=== PATIENT | female | born 1945 | race Two or more races ===

== ENCOUNTER 2019-08-03 07:49 | Day surgery (SDC) | payer MEDICARE, OTHER ==
[~2019-08-03] VITALS: Ht 154.9 cm; Wt 69.2 kg
[2019-08-03] VITALS (8 sets, daily range): BP systolic 116–143; BP diastolic 53–67
[2019-08-03] MEDS ORDERED: diphenhydrAMINE 25mg capsule PO PRN (08:20)
[2019-08-03] MEDS ORDERED: normal saline 1,000 ML IV SCH (08:20)
[2019-08-03] MEDS ORDERED: HYDR-4383 PO (08:34)
[2019-08-03] MEDS ORDERED: LISI-600 PO (08:34)
[2019-08-03] MEDS ORDERED: FENO48TA15 PO (08:34)
[2019-08-03] MEDS ORDERED: B12 PO (08:34)
[2019-08-03] MEDS ORDERED: midazolam 2 mg/2 ml injection ONE (08:35)
[2019-08-03] MEDS ORDERED: fentaNYL/PF 50MCG/1 ML 2ML syringe ONE (08:35)
[2019-08-03] MEDS ORDERED: iohexol 350 MG/ML 50ML vial IV ONE (08:35)
[2019-08-03] MEDS ORDERED: iohexol 350MG/ML 100ml bottle IV ONE ×2 (08:35→09:53)
[2019-08-03] MEDS ORDERED: LIDOcaine 1% (10mg/ml)w/preservative injection 20ml MDV ONE (08:35)
[2019-08-03 08:36] LABS: BASOPHILS % (AUTO) 0.8 % (0-1); EOSINOPHILS # (AUTO) 0.1 X10'3 (0-0.9); EOSINOPHILS % (AUTO) 2.5 % (0-6); HEMATOCRIT 38.2 % (35.0-45.0); HEMOGLOBIN 12.5 g/dl (12.0-16.0); LYMPHOCYTES # (AUTO) 1.2 X10'3 (1.1-4.8); LYMPHOCYTES % (AUTO) 22.7 % (21-51); MEAN CORPUSCULAR HEMOGLOBIN 29.9 PG (27.0-31.0); MEAN CORPUSCULAR HGB CONC 32.9 g/dL (33.0-36.5); MEAN PLATELET VOLUME 7.7 FL (7.4-10.4); MONOCYTES # (AUTO) 0.5 X10'3 (0-0.9); NEUTROPHILS # (AUTO) 3.4 X10'3 (1.8-7.7); PLATELET COUNT 204 X10'3 (140-440); RED BLOOD COUNT 4.19 X10'6 (4.20-5.60); RED CELL DISTRIBUTION WIDTH 13.9 % (11.5-14.5); WHITE BLOOD COUNT 5.3 X10'3 (4.5-11.0)
[2019-08-03] MEDS ORDERED: INSU100V12 SQ (08:36)
[2019-08-03] MEDS ORDERED: NPH,100V2 SQ (08:36)
[2019-08-03] MEDS ORDERED: PRAV80TA3 PO (08:36)
[2019-08-03 08:44] LABS: ALBUMIN 4.2 G/DL (3.4-5.0); ANION GAP 10 (8-16); BLOOD UREA NITROGEN 19 MG/DL (7-18); BUN/CREATININE RATIO 18.1 (6.6-38.0); CALCIUM 9.6 MG/DL (8.5-10.1); CHLORIDE 104 MMOL/L (99-107); CREATININE 1.05 MG/DL (0.40-0.90); GLUCOSE 202 MG/DL (70-104); MAGNESIUM 1.9 MG/DL (1.5-2.4); POTASSIUM 4.6 MMOL/L (3.5-5.1); SODIUM 139 MMOL/L (135-145); TOTAL CARBON DIOXIDE 25.4 MMOL/L (24-32); eGFR 51 ML/MIN
[2019-08-03] MEDS ORDERED: ADV50100 IH (08:44)
[2019-08-03] MEDS ORDERED: GABA-530 PO (08:44)
[2019-08-03] MEDS ORDERED: CLOP75TA35 PO (08:44)
[2019-08-03] MEDS ORDERED: ASPI-1265 PO (08:45)
[2019-08-03] MEDS ORDERED: PANT-47 PO (08:47)
[2019-08-03] MEDS ORDERED: OXYB5TAB16 PO (08:47)
[2019-08-03] MEDS ORDERED: HYDROcodone/acetaminophen 10/325mg tab PO PRN (10:45)
[2019-08-03] MEDS ORDERED: HYDROcodone/acetaminophen 5mg/325mg tablet PO PRN (10:45)
== END 2019-08-03 13:45 | disposition home or self-care (01) ==
LOC: SSTAY O 07:49
PROVIDERS: ATTEND Internal Medicine Cardiovascular Disease
DX: T82.868A Thrombosis due to vascular prosthetic devices, implants and grafts, initial encounter (principal); I25.118 Atherosclerotic heart disease of native coronary artery with other forms of angina pectoris; I10 Essential (primary) hypertension; E66.9 Obesity, unspecified; Z68.27 Body mass index [BMI] 27.0-27.9, adult; E78.5 Hyperlipidemia, unspecified; K21.9 Gastro-esophageal reflux disease without esophagitis; Z85.3 Personal history of malignant neoplasm of breast; Z98.49 Cataract extraction status, unspecified eye; E10.40 Type 1 diabetes mellitus with diabetic neuropathy, unspecified; Z98.890 Other specified postprocedural states; Z95.1 Presence of aortocoronary bypass graft; Z90.49 Acquired absence of other specified parts of digestive tract; Z79.899 Other long term (current) drug therapy; Z79.82 Long term (current) use of aspirin; Z79.01 Long term (current) use of anticoagulants; Z88.8 Allergy status to other drugs, medicaments and biological substances; Z95.5 Presence of coronary angioplasty implant and graft; Y83.8 Other surgical procedures as the cause of abnormal reaction of the patient, or of later complication, without mention of misadventure at the time of the procedure; Y92.89 Other specified places as the place of occurrence of the external cause
CPT/HCPCS: 36415; 80048; 82948; 83735; 85025; 85610; 93005; 93459; 99152; 99153; C1760; C1769; C1894; J1644; J2001; J2250; J3010; J7030; Q9967; A4620; A6258

== ENCOUNTER 2022-01-05 07:46 | Day surgery (SDC) | payer MEDICARE, OTHER ==
[2021-12-28 10:46] LABS: BASOPHILS % (AUTO) 0.8 % (0-1); EOSINOPHILS # (AUTO) 0.1 X10'3 (0-0.9); EOSINOPHILS % (AUTO) 2.4 % (0-6); LYMPHOCYTES # (AUTO) 1.2 X10'3 (1.1-4.8); LYMPHOCYTES % (AUTO) 29.1 % (21-51); MEAN CORPUSCULAR HEMOGLOBIN 29.7 PG (27.0-31.0); MEAN CORPUSCULAR HGB CONC 33.1 g/dL (33.0-36.5); MEAN CORPUSCULAR VOLUME 89.8 FL (78-98); MEAN PLATELET VOLUME 7.8 FL (7.4-10.4); MONOCYTES # (AUTO) 0.3 X10'3 (0-0.9); MONOCYTES % (AUTO) 8.6 % (2-12); NEUTROPHILS # (AUTO) 2.4 X10'3 (1.8-7.7); NEUTROPHILS % (AUTO) 59.1 % (42-75); PRE OP HEMATOCRIT 31.4 % (35.0-45.0); PRE OP PLATELET COUNT 243 X10'3 (140-440); RED BLOOD COUNT 3.49 X10'6 (4.20-5.60); RED CELL DISTRIBUTION WIDTH 13.7 % (11.5-14.5)
[2021-12-28 10:55] LABS: PRE OP HEMOGLOBIN 10.4 g/dL (12.0-16.0)
[2021-12-28 13:18] LABS: ALBUMIN 3.9 G/DL (3.4-5.0); ALBUMIN/GLOBULIN RATIO 1.2 (1.1-1.5); ALKALINE PHOSPHATASE 52 IU/L (46-116); BLOOD UREA NITROGEN 34 MG/DL (7-18); BUN/CREATININE RATIO 25.8 (6.6-38.0); CALCIUM 9.4 MG/DL (8.5-10.1); CHLORIDE 103 MMOL/L (99-107); CREATININE 1.32 MG/DL (0.40-0.90); PRE OP ALT 23 U/L (30-65); PRE OP ANION GAP 7 (8-16); PRE OP AST 22 U/L (10-37); PRE OP BILIRUB, TOTAL 0.3 MG/DL (0.0-1.0); PRE OP POTASSIUM 5.4 MMOL/L (3.4-5.1); PRE OP SODIUM 139 MMOL/L (135-145); TOTAL CARBON DIOXIDE 28.8 MMOL/L (24-32); TOTAL PROTEIN 7.1 G/DL (6.4-8.2); eGFR 39 ML/MIN
[2021-12-28 13:19] LABS: PRE OP GLUCOSE 251 MG/DL (70-104)
[~2022-01-05] VITALS: Ht 154.9 cm; Wt 63.5 kg
[~2022-01-05 07:46] MED LIST: ASPI-1265 PO; BUPIVAcaine 0.5% inj/PF 30 ML ONE; CLOP75TA34 PO; EVOL140P3 SUBCUT; FENO48TA15 PO; GABA-530 PO; INSU100V12 SQ; LIDOcaine 1% 30ml preserv. free vial ONE; LISI40TA13 PO; NOVLG SQ; OXYB5TAB16 PO; PANT-47 PO; cefazolin/dext.iso 2gm/50ml IV ONE; famotidine 20mg tablet PO ONE; ringers solution, lacted 1,000 ML IV SCH
[2022-01-05 09:00] VITALS: BP 130/62
[2022-01-05] MEDS ORDERED: LEVO50TA8 PO (09:51)
[2022-01-05] MEDS ORDERED: fentaNYL/PF 50MCG/1 ML 2ML syringe ONE (11:00)
[2022-01-05] MEDS ORDERED: BUPIVAcaine 0.5% inj/PF 30 ml vial IJ ONE (11:00)
[2022-01-05] MEDS ORDERED: midazolam 1 mg/ML 2ml injection ONE (11:00)
[2022-01-05 11:28] VITALS: BP 164/67
--- NOTE | 2022-01-05 11:28 | NUR ---
Received from OR via [facility], accompanied by Anesthesiologist JASPREET and report given by Anesthesiolgist. PATIENT WITH 20G PIV IN LEFT UE RUNNING LR AT 100. DENIES PAIN. RIGHT WRIST DRESSING IS CDI. FINGERS PWD, + CAP REFILL . ON ROOM AIR WITH 100% SATURATIONS. DENIES PAIN Addendum: 01/05/22 at 1138 by Kevin Armstrong RN, RN Amended: Links added.
[2022-01-05] MEDS ORDERED: morphine 2 MG/ML inj. syringe IV PRN (11:35)
[2022-01-05] MEDS ORDERED: ondansetron/PF 4mg/2ml inj IV PRN (11:35)
[2022-01-05] MEDS ORDERED: morphine 4 MG/ML inj SYRINge IV PRN (11:35)
[2022-01-05] MEDS ORDERED: proCHLORperazine 10 MG/2 ml inj IV PRN (11:35)
[2022-01-05] MEDS ORDERED: meperidine/PF 25mg/ml syringe IV PRN ×3 (11:35)
[2022-01-05] MEDS ORDERED: ringers solution, lacted 1,000 ML IV SCH (11:35)
[2022-01-05 11:38] VITALS: BP 151/59
[2022-01-05 11:48] VITALS: BP 148/62
[2022-01-05 11:58] VITALS: BP 142/61
--- NOTE | 2022-01-05 12:08 | NUR ---
ALL DISCHARGE CRITERIA HAS BEEN MET. VSS, PAIN AT A TOLERABLE LEVEL, VOIDING AND ABLE TO SAFELY AMBULATE AND TRANSFER SELF. IV TAKEN OUT WITHOUT ANY COMPLICATIONS. ALL DISCHARGE INSTRUCTIONS COVERED WITH PATIENT AND ALL QUESTIONS ANSWERED. PATIENT TAKEN OUT VIA WHEELCHAIR TO PERSONAL VEHICLE WHERE FAMILY/FRIEND DROVE PATIENT HOME. Addendum: 01/05/22 at 1214 by Kevin Armstrong RN, RN Amended: Links added.
== END 2022-01-05 12:08 | disposition home or self-care (01) ==
LOC: PRE-OP 07:46
PROVIDERS: ATTEND Orthopaedic Surgery Hand Surgery
DX: G56.01 Carpal tunnel syndrome, right upper limb (principal); M65.341 Trigger finger, right ring finger; E11.9 Type 2 diabetes mellitus without complications; I25.10 Atherosclerotic heart disease of native coronary artery without angina pectoris; Z20.822 Contact with and (suspected) exposure to COVID-19; Z79.01 Long term (current) use of anticoagulants; Z79.899 Other long term (current) drug therapy; Z79.82 Long term (current) use of aspirin; Z90.710 Acquired absence of both cervix and uterus; Z98.890 Other specified postprocedural states; Z98.41 Cataract extraction status, right eye; Z95.1 Presence of aortocoronary bypass graft; E03.9 Hypothyroidism, unspecified; M19.90 Unspecified osteoarthritis, unspecified site; Z85.3 Personal history of malignant neoplasm of breast
CPT/HCPCS: 26055; 36415; 64721; 80053; 82948; 85025; J0690; J2250; J3010; J3490; J7030; J7120; S0020; U0003; U0005; Z7506; Z7512; A4215

== ENCOUNTER 2025-03-26 08:08 | Day surgery (SDC) | payer MEDICARE, OTHER ==
[2025-03-26] VITALS (9 sets, daily range): BP systolic 139–166; BP diastolic 55–70; PULSE 53–68; RESP 12–20; TEMP 98.2; O2SAT 98–100
[~2025-03-26] VITALS: Ht 154.9 cm; Wt 65.3 kg
[~2025-03-26 08:08] MED LIST changes: -BUPIVAcaine 0.5% inj/PF 30 ML ONE; +LEVO50TA8 PO; -LIDOcaine 1% 30ml preserv. free vial ONE; -OXYB5TAB16 PO; +OXYB5TAB21 PO; -cefazolin/dext.iso 2gm/50ml IV ONE; -famotidine 20mg tablet PO ONE; -ringers solution, lacted 1,000 ML IV SCH
--- NOTE | 2025-03-26 08:42 | ELECTROCARDIOGRAPH REPORT ---
[facility] Test Date: 2025-03-26 Test Time: 08:39:41 Pat Name: CARL KHAN Department: [facility] Patient ID: [id number] Room: Gender: F Manager [employer]: VIPUL : [id number] Requested By: JOSUE STRICKLAND Order Number: [id number] Reading MD: Dr. LAKEISHA Gomes Measurements Intervals [place] Rate: 62 P: 31 MD: 168 QRS: 1 QRSD: 93 T: 34 QT: 400 QTc: 407 Interpretive Statements Sinus rhythm Borderline T abnormalities, anterior leads Electronically Signed On 03-26-2025 16:14:[address] LAKEISHA Gomes Please click the below link to view image of tracing.
[2025-03-26] MEDS ORDERED: PRED5DRO23 RIGHTEYE (09:00)
[2025-03-26] MEDS ORDERED: ATRO2DRO RIGHTEYE (09:00)
[2025-03-26] MEDS ORDERED: FERR-121 PO (09:00)
[2025-03-26] MEDS ORDERED: LANTUS SQ (09:00)
[2025-03-26 09:06] LABS: BASOPHILS % (AUTO) 0.8 % (0-1); EOSINOPHILS # (AUTO) 0.2 X10'3 (0-0.9); EOSINOPHILS % (AUTO) 4.5 % (0-6); HEMATOCRIT 37.7 % (35.0-45.0); HEMOGLOBIN 12.8 g/dl (12.0-16.0); LYMPHOCYTES # (AUTO) 1.3 X10'3 (1.1-4.8); LYMPHOCYTES % (AUTO) 25.1 % (21-51); MEAN CORPUSCULAR HEMOGLOBIN 30.8 PG (27.0-31.0); MEAN CORPUSCULAR HGB CONC 33.9 g/dL (33.0-36.5); MEAN CORPUSCULAR VOLUME 90.9 FL (78-98); MEAN PLATELET VOLUME 7.3 FL (7.4-10.4); MONOCYTES # (AUTO) 0.5 X10'3 (0-0.9); MONOCYTES % (AUTO) 9.4 % (2-12); NEUTROPHILS # (AUTO) 3.2 X10'3 (1.8-7.7); NEUTROPHILS % (AUTO) 60.2 % (42-75); PLATELET COUNT 212 X10'3 (140-440); RED BLOOD COUNT 4.14 X10'6 (4.20-5.60); RED CELL DISTRIBUTION WIDTH 13.4 % (11.5-14.5); WHITE BLOOD COUNT 5.3 X10'3 (4.5-11.0)
[2025-03-26] MEDS: sodium bicarbonate 1meq/ml syr 150 ML in dextrose 5%-water 1,000 ML IV ONE (09:20)
[2025-03-26] MEDS: diphenhydrAMINE 25mg capsule PO PRN (09:20)
[2025-03-26] MEDS: normal saline 1,000 ML IV SCH (09:20)
[2025-03-26 09:22] LABS: PROTHROMBIN TIME 10.5 SECONDS (9.0-12.0)
[2025-03-26 09:30] LABS: ANION GAP 6 (8-16); BLOOD UREA NITROGEN 34 MG/DL (7-18); CALCIUM 9.4 MG/DL (8.5-10.1); CHLORIDE 107 MMOL/L (99-107); CREATININE 1.03 MG/DL (0.40-0.90); GLUCOSE 101 MG/DL (70-104); MAGNESIUM 1.9 MG/DL (1.5-2.4); POTASSIUM 4.8 MMOL/L (3.5-5.1); SODIUM 140 MMOL/L (135-145); TOTAL CARBON DIOXIDE 27.5 MMOL/L (24-32); eCRCL 33 ML/MIN; eGFR 52 ML/MIN
[2025-03-26] MEDS ORDERED: iohexol 350 MG/ML 50ML vial IV ONE (10:30)
[2025-03-26] MEDS ORDERED: fentaNYL/PF 50MCG/1 ML 2ML syringe ONE (10:30)
[2025-03-26] MEDS ORDERED: heparin 1,000unit/ml 10ml vial 10 ML ONE (10:30)
[2025-03-26] MEDS ORDERED: midazolam 1 mg/ML 2ml injection ONE ×2 (10:30→11:20)
[2025-03-26] MEDS ORDERED: LIDOcaine 1% 30ml preserv. free vial ONE (10:30)
[2025-03-26] MEDS ORDERED: iohexol 350MG/ML 100ml bottle IV ONE ×2 (10:31→12:07)
--- NOTE | 2025-03-26 13:12 | CARDIOLOGY REPORT ---
DATE OF SERVICE: 03/26/2025 DICTATING PHYSICIAN: JOSUE STRICKLAND DO CARDIAC CATHETERIZATION REPORT REFERRING PHYSICIAN: Mara Estrella MD. CLINICAL HISTORY: This 79-year-old woman is status post 4-vessel CABG in 2010. Catheterization in 2011 demonstrated that all 3 vein grafts previously placed were occluded, but a BRAVO to the LAD was patent and functioning normally. She has had stent placement to the circumflex and right coronary arteries. She occasionally has chest discomfort, but it has no consistent pattern. PROCEDURES PERFORMED: * Left heart catheterization. * Left ventriculography. * Selective coronary arteriography. * Selective opacification of a left internal mammary graft. * A 30-minute conscious sedation supervision. DESCRIPTION OF PROCEDURE: The patient was sedated with fentanyl and Versed. She was then prepared and draped in the usual manner. The right inguinal area was infiltrated with 1% lidocaine. Using a micropuncture set and a Seldinger technique, a 7-[place] sheath was placed in the common femoral artery, 3000 units of heparin were given. Left heart catheterization and left ventriculography were performed using a 6-[place] pigtail catheter. Coronary arteriography was performed using 6-[place]ian #4 left and right Jagdeep catheters. The left internal mammary artery graft was opacified using a 6-[place] DEMETRIUS catheter. The stumps of previous vein grafts were not opacified given the fact they have been previously demonstrated to be occluded. RESULTS: HEMODYNAMIC DATA: The left ventricular and diastolic pressure was 23 mmHg. There was no gradient across the aortic valve. LEFT VENTRICULOGRAM: The left ventriculogram was technically satisfactory. The ejection fraction was about 60-65%. CORONARY ARTERIOGRAPHY: The coronary arteriograms were technically satisfactory. The patient had a right dominant system. LEFT MAIN CORONARY ARTERY: The left main was large unobstructed vessel bifurcating into the left anterior descending and circumflex coronary arteries. LEFT ANTERIOR DESCENDING CORONARY ARTERY: The LAD appeared to be a medium-sized vessel. It was occluded just after the takeoff of the first major septal oncology registrar and the takeoff of a medium-sized diagonal branch. CIRCUMFLEX CORONARY ARTERY: The circumflex was a large main stem vessel. There was a large first obtuse marginal and a very large posterolateral branch. A stent in the distal vessel was widely patent. There were no obstructive lesions otherwise within the circumflex coronary artery, although there were moderate luminal irregularities. RIGHT CORONARY ARTERY: The right coronary artery was a large main stem vessel. There was a medium-sized posterior descending branch and 2 small posterolateral branches. The mid right coronary artery was narrowed by about 50-60% just beyond the end of a stent. SELECTIVE OPACIFICATION OF LEFT INTERNAL MAMMARY GRAFT: The BRAVO to mid LAD was widely patent both in the graft and in the mcgrath vessel beyond the distal anastomosis. CONCLUSIONS: * Coronary artery disease manifested as follows: * A. 100% obstruction of the mid LAD. * B. 50-60% narrowing of the right coronary artery in its mid segment right in the region of the acute marginal band. * Three previously placed saphenous vein grafts known to be occluded; however, there is a patent and unobstructed BRAVO to the mid LAD. * Left ventricular function was normal. The ejection fraction was 60-65%. RECOMMENDATIONS: Ongoing medical therapy. JOSUE STRICKLAND DO TID: [id number] RECEIPT: [id number] MARTHA/VIVEK MACIEL
[2025-03-26] MEDS ORDERED: HYDROcodone/acetaminophen 10/325mg tab PO PRN (13:25)
[2025-03-26] MEDS ORDERED: proCHLORperazine 10 MG/2 ml inj IV PRN (13:25)
[2025-03-26] MEDS ORDERED: HYDROcodone/acetaminophen 5mg/325mg tablet PO PRN (13:25)
[2025-03-26] MEDS ORDERED: ondansetron/PF 4mg/2ml inj IV PRN (13:25)
--- NOTE | 2025-03-26 13:35 | CARDIOLOGY REPORT ---
DATE OF SERVICE: 03/26/2025 DICTATING PHYSICIAN: JOSUE STRICKLAND DO CARDIAC CATHETERIZATION REPORT REFERRING PHYSICIAN: Mara Estrella MD CLINICAL HISTORY: This 79-year-old woman has claudication in both lower extremities with the left being much more severe. The patient's notable historical point is that the patient has had previous back surgery and now has fixation hardware in the lumbosacral area. PROCEDURES PERFORMED: * Right common femoral arterial access. * Ipsilateral iliac, femoral, popliteal, and infrapopliteal arteriographic runoff. * Distal abdominal aortic angiogram with left leg runoff. * Percutaneous arteriotomy closure (perclosed). * 60 minutes conscious sedation and supervision. DESCRIPTION OF PROCEDURE: The patient was sedated with fentanyl and Versed. She was prepared and draped in the usual manner. A 7-[place] Citizen sheath was in place in the common femoral artery. Using this sheath, ipsilateral angiographic runoff of the iliacs, femoral, popliteal, and infrapopliteal vessels was accomplished. There was an effort to using a 6-[place] DEMETRIUS catheter and a Glidewire to enter the left iliac system, but because of poor visibility due to orthopedic hardware and twisting of the iliac origins, the cannulation could not be accomplished. Therefore, a 6-[place] pigtail was placed in the distal abdominal aorta and using a power injection of 40 mL at 20 mL/sec, imaging of the contralateral iliac, femoral, popliteal, and infrapopliteal vessels was performed. The arterial puncture site was successfully Perclosed. RESULTS: Right side: * The entire iliac system was free of obstructive disease. * The common femoral artery contained 3 calcific plaque areas, suggesting that it was at least 50-60% narrowed; however, flow through this area was extremely brisk, making it probable that the plaques were not truly obstructive. * The profunda femoris and the superficial femoral artery were patent and unobstructed. * The popliteal artery was patent and unobstructed. * The anterior tibial artery appears to be occluded proximally. The posterior tibial was patent and unobstructed and reached down to the ankle. The peroneal artery was patent, but was very small in caliber and did not clearly reach down to the ankle. Left side: * The entire iliac system is patent and unobstructed. * The common femoral, profunda femoris and superficial femoral arteries were all patent and unobstructed. * The popliteal artery is patent and unobstructed. * There is 3-vessel runoff down to the ankle and 2-vessel filling into the foot. CONCLUSIONS: * Right common femoral artery with atheromatous plaquing, but no clearly obstructive disease. 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 * No significant obstructive disease in the entire left arterial system. 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 JOSUE STRICKLAND DO TID: [id number] RECEIPT: [id number] MARTHA/DONG/SARA MACIEL
== END 2025-03-26 16:00 | disposition home or self-care (01) ==
LOC: SSTAY O 08:08
PROVIDERS: ATTEND Internal Medicine Cardiovascular Disease
DX: I70.211 Atherosclerosis of native arteries of extremities with intermittent claudication, right leg (principal); I25.118 Atherosclerotic heart disease of native coronary artery with other forms of angina pectoris; I10 Essential (primary) hypertension; I34.0 Nonrheumatic mitral (valve) insufficiency; E10.9 Type 1 diabetes mellitus without complications; K21.9 Gastro-esophageal reflux disease without esophagitis; E78.5 Hyperlipidemia, unspecified; E03.9 Hypothyroidism, unspecified; Z79.899 Other long term (current) drug therapy; Z95.1 Presence of aortocoronary bypass graft; Z95.5 Presence of coronary angioplasty implant and graft; Z98.890 Other specified postprocedural states
CPT/HCPCS: 36140; 36415; 75625; 75716; 80048; 82948; 83735; 85025; 85610; 93005; 99152; 99153; A6258; C1725; C1760; C1769; C1894; J1644; J2003; J2250; J3010; J3490; J7030; J7070; Q0163; Q9967; Z7610; 75630; 75710; 93458